=== PATIENT | female | born 1985 | race Caucasian/White ===

== ENCOUNTER 2017-07-25 21:08 | Inpatient (IN) | payer BC ==
[~2017-07-25] VITALS: Ht 160 cm; Wt 76.7 kg
[2017-07-25 22:19] LABS: HEMOGLOBIN 12.6 gm/dl (12.3-15.3); RED BLOOD COUNT 4.12 M/UL (4.00-5.10); WHITE BLOOD COUNT 9.4 K/UL (4.5-11.0)
[2017-07-27 02:49] LABS: HEMOGLOBIN 9.8 gm/dl (12.3-15.3)
== END 2017-07-28 13:40 | disposition home or self-care (01) | DRG 766 ==
LOC: GENOP 21:08 → OB 22:26
PROVIDERS: ADMIT Obstetrics & Gynecology
PROC: 10D00Z1 Extraction of Products of Conception, Low, Open Approach (ICD-10-PCS; principal; 2017-07-26 04:10)
DX: O76 Abnormality in fetal heart rate and rhythm complicating labor and delivery (principal); Z3A.40 40 weeks gestation of pregnancy; Z37.0 Single live birth
CPT/HCPCS: 36415; 82800; 85014; 85018; 85025; C9113; J0690; J2274; J2300; J2405; J2590; J2795; J3010; J3430; J7120; Q0163